=== PATIENT | female | born 1990 | race Caucasian/White ===

== ENCOUNTER 2021-10-28 19:50 | Observation (INO) | payer BC, MEDICAID ==
[~2021-10-28] VITALS: Ht 167.6 cm; Wt 86.2 kg
[2021-10-28 21:01] VITALS: BP 105/64
== END 2021-10-28 21:50 | disposition home or self-care (01) ==
LOC: MFCC 19:50
PROVIDERS: ADMIT Obstetrics & Gynecology; ATTEND Obstetrics & Gynecology
DX: O26.893 Other specified pregnancy related conditions, third trimester (principal); R10.9 Unspecified abdominal pain; Z3A.39 39 weeks gestation of pregnancy
CPT/HCPCS: 59025; 81000; G0378

== ENCOUNTER 2021-10-31 05:30 | Inpatient (IN) | payer BC, MEDICAID ==
[~2021-10-31] VITALS: Ht 167.6 cm; Wt 87.1 kg
[2021-10-31] MEDS ORDERED: PRETAB PO (06:14)
[2021-10-31] MEDS ORDERED: OSC500 PO (06:14)
[2021-10-31] MEDS ORDERED: FERR325E14 PO (06:14)
[2021-10-31] MEDS ORDERED: METHYLERGONOVINE 0.2 MG/ML AMP IM PRN ×2 (06:25→08:50)
[2021-10-31] MEDS ORDERED: CARBOPROST 250 MCG/ML AMP IM PRN (06:25)
[2021-10-31] MEDS ORDERED: CITRIC ACID/SODIUM CITRATE 30 ML UDC PO ONE (06:25)
[2021-10-31] MEDS ORDERED: LACTATED RINGERS 1,000 ML IV SCH (06:25)
[2021-10-31] MEDS ORDERED: TERBUTALINE 1 MG/ML VIAL SUBQ SCH (06:35)
[2021-10-31] MEDS ORDERED: TERBUTALINE 1 MG/ML VIAL SUBQ ONE (06:38)
[2021-10-31 07:11] LABS: BASOPHILS % (AUTO) 0.3 % (0.0-2.0); EOSINOPHILS # (AUTO) 0.1 K/uL (0-0.4); EOSINOPHILS % (AUTO) 0.5 % (0.0-4.0); HEMATOCRIT 34.9 % (36-48); HEMOGLOBIN 11.3 g/dL (12.0-16.0); LYMPHOCYTES % (AUTO) 25.7 % (20.5-51.1); MEAN CORPUSCULAR HEMOGLOBIN 25 pg (27-31); MEAN CORPUSCULAR HGB CONC 32 g/dL (33-37); MEAN CORPUSCULAR VOLUME 77.9 fL (80-94); MONOCYTES # (AUTO) 0.8 K/uL (0.8-1.0); MONOCYTES % (AUTO) 6.5 % (1.7-9.3); NEUTROPHILS # (AUTO) 7.8 K/uL (1.8-7.7); PLATELET COUNT (AUTO) 257 K/uL (140-450); RED BLOOD CELL COUNT(AUTO) 4.48 MIL/uL (4.20-5.40); RED CELL DISTRIBUTION WIDTH 16.8 % (11.6-13.7); WHITE BLOOD COUNT (AUTO) 11.7 K/uL (4.8-10.8)
[2021-10-31 07:20] VITALS: BP 111/68
[2021-10-31 07:27] LABS: APPEARANCE,URINE CLEAR (CLEAR); BILIRUBIN,URINE NEGATIVE (NEGATIVE); BLOOD, URINE 1+ (NEGATIVE); COLOR,URINE YELLOW (YELLOW); LEUKOCYTE ESTERASE ,URINE TRACE (NEGATIVE); NITRITE, URINE NEGATIVE (NEGATIVE); PH,URINE 6.5 (5.0-9.0); UGLUCOSE NEGATIVE (NEGATIVE)
[2021-10-31 07:34] LABS: ALBUMIN 2.4 g/dL (3.4-5.0); ANION GAP 15.2 (8-16); CARBON DIOXIDE 21.6 mmol/L (21-32); CREATININE 0.6 mg/dL (0.6-1.3); POTASSIUM 3.8 mmol/L (3.5-5.1); TOTAL BILIRUBIN 0.3 mg/dL (0.0-1.0)
[2021-10-31 07:57] LABS: RBC,URINE 0-5 /HPF (0-5)
[2021-10-31 07:58] LABS: WBC,URINE 0-5 /HPF (0-5)
[2021-10-31 07:59] LABS: CALCIUM OXALATE CRYSTALS,UR None Seen /HPF (None Seen); COARSE GRANULAR CASTS,URINE None Seen /LPF (None Seen); FINE GRANULAR CASTS,URINE None Seen /LPF (None Seen); HYALINE CASTS, URINE None Seen /LPF (None Seen); OTHER CASTS, URINE None Seen /LPF (None Seen); OTHER CRYSTALS,URINE None Seen /HPF (None Seen); RED BLOOD CELL CASTS,URINE None Seen /LPF (None Seen); TRICHOMONAS,URINE None Seen /HPF (None Seen); TRIPLE PHOSPHATE CRYSTAL,UR None Seen /HPF (None Seen); URIC ACID CRYSTALS,URINE None Seen /HPF (None Seen); URINE AMORPHOUS URATE None Seen /HPF (None Seen); WAXY CASTS,URINE None Seen /LPF (None Seen); YEAST,URINE None Seen /HPF (None Seen)
[2021-10-31] MEDS ORDERED: METOCLOPRAMIDE 10 MG/2 ML INJ VIAL ONE (08:25)
[2021-10-31] MEDS ORDERED: MIDAZOLAM 2 MG/2 ML VIAL ONE (08:26)
[2021-10-31] MEDS ORDERED: MORPHINE PRES FREE 10 MG/10 ML AMP IV ONE (08:26)
[2021-10-31] MEDS ORDERED: KETOROLAC 30 MG/ML VIAL IVP PRN ×3 (08:50→22:15)
[2021-10-31] MEDS ORDERED: MEASLES, MUMPS, AND RUBELLA 1 VIAL SQVAC PRN (08:50)
[2021-10-31] MEDS ORDERED: oxyCODONE/APAP 5/325 MG 1 TAB TAB PO PRN ×2 (08:50)
[2021-10-31] MEDS ORDERED: TEMAZEPAM 15 MG CAP PO PRN (08:50)
[2021-10-31] MEDS ORDERED: MEPERIDINE 25 MG/ML SYR IVP PRN (08:55)
[2021-10-31] MEDS ORDERED: ONDANSETRON 4 MG/2 ML VIAL IVP PRN ×4 (08:55→22:15)
[2021-10-31] MEDS ORDERED: NALBUPHINE 10 MG/ML AMP IVP PRN (08:55)
[2021-10-31] MEDS ORDERED: diphenhydrAMINE 50 MG/ML VIAL IVP PRN ×3 (08:55→13:30)
[2021-10-31] MEDS ORDERED: OXYTOCIN 20 UNITS in LACTATED RINGERS 1,000 ML IV SCH (08:55)
[2021-10-31] MEDS ORDERED: HYDROmorphone 1 MG/ML AMP IVP PRN (08:55)
[2021-10-31] MEDS ORDERED: NALOXONE 0.4 MG/ML VIAL IVP PRN ×3 (08:55)
--- NOTE | 2021-10-31 08:56 | NUR ---
PATIENT HAS BEEN SCREENED AND CATEGORIZED LOW NUTRITION RISK. PATIENT WILL BE SEEN WITHIN 7 DAYS OF ADMISSION. 11/06/[address]
[2021-10-31] MEDS ORDERED: OXYTOCIN 20 UNITS/LR PREMIX 1,000 ML IV ONE (09:10)
[2021-10-31] MEDS: OXYTOCIN 20 UNITS in LACTATED RINGERS 1,000 ML IV SCH ×4 (10:31→19:58)
[2021-10-31] MEDS ORDERED: KETOROLAC 30 MG/ML VIAL IM/IVP SCH (12:00)
[2021-10-31] MEDS: DOCUSATE SOD/SENNA 50/8.6 MG 1 TAB PO SCH (21:00)
[2021-11-01] MEDS ORDERED: OXYTOCIN 20 UNITS/LR PREMIX 1,000 ML IV ONE (03:47)
[2021-11-01] MEDS: OXYTOCIN 20 UNITS in LACTATED RINGERS 1,000 ML IV SCH (04:35)
[2021-11-01 05:45] LABS: BASOPHILS % (AUTO) 0.2 % (0.0-2.0); EOSINOPHILS % (AUTO) 0.2 % (0.0-4.0); HEMATOCRIT 32.3 % (36-48); HEMOGLOBIN 10.4 g/dL (12.0-16.0); LYMPHOCYTES # (AUTO) 1.5 K/uL (2.5-16.5); LYMPHOCYTES % (AUTO) 9.3 % (20.5-51.1); MEAN CORPUSCULAR HEMOGLOBIN 25 pg (27-31); MEAN CORPUSCULAR HGB CONC 32 g/dL (33-37); MEAN CORPUSCULAR VOLUME 76.9 fL (80-94); MONOCYTES # (AUTO) 0.9 K/uL (0.8-1.0); MONOCYTES % (AUTO) 5.5 % (1.7-9.3); NEUTROPHILS # (AUTO) 13.3 K/uL (1.8-7.7); NEUTROPHILS % (AUTO) 84.8 % (42.2-75.2); PLATELET COUNT (AUTO) 233 K/uL (140-450); RED BLOOD CELL COUNT(AUTO) 4.19 MIL/uL (4.20-5.40); WHITE BLOOD COUNT (AUTO) 15.7 K/uL (4.8-10.8)
[2021-11-01] MEDS: SIMETHICONE 80 MG TAB.CHEW PO PRN ×3 (08:54→22:53)
[2021-11-01] MEDS: IBUPROFEN 800 MG TAB PO PRN (14:36)
[2021-11-01] MEDS: DOCUSATE SOD/SENNA 50/8.6 MG 1 TAB PO SCH (21:02)
[2021-11-02] MEDS: IBUPROFEN 800 MG TAB PO PRN (00:45)
[2021-11-02] MEDS ORDERED: CAMERA MC ONE (02:30)
[2021-11-02] MEDS: SIMETHICONE 80 MG TAB.CHEW PO PRN (06:56)
== END 2021-11-02 14:15 | disposition home or self-care (01) | DRG 788 ==
LOC: MLD 05:30 → OBSVTOIN 06:20 → MFCC 09:46
PROVIDERS: ADMIT Obstetrics & Gynecology; ATTEND Obstetrics & Gynecology
PROC: 10D00Z1 Extraction of Products of Conception, Low, Open Approach (ICD-10-PCS; principal; 2021-10-31 08:00)
DX: O34.211 Maternal care for low transverse scar from previous cesarean delivery (principal); Z20.822 Contact with and (suspected) exposure to COVID-19; Z37.0 Single live birth; Z3A.38 38 weeks gestation of pregnancy
CPT/HCPCS: 36415; 51702; 80053; 81001; 85025; 86592; 86886; 86900; 86901; J0690; J1885; J2250; J2270; J2405; J2590; J2765; J3105; J7060; J7120